=== PATIENT | male | born 1990 | race Caucasian/White ===

== ENCOUNTER 2020-01-13 12:06 | Emergency (ER) | payer OTHER ==
[~2020-01-13] VITALS: Ht 177.8 cm; Wt 59.0 kg
[~2020-01-13 12:06] MED LIST: IBUPROFEN600 MG ORAL; ROBAXIN-750750 MG PO
[2020-01-13] MEDS ORDERED: Tetanus/Diptheria/Pertussis IM ONE (13:00)
[2020-01-13 13:02] VITALS: BP 112/74
--- NOTE | 2020-01-13 13:06 | NUR ---
ED Nurse Note:pt. came with 3rg right finger laceration with kitchen knife, no bleeding at this time, wound was cleaned with NS
[2020-01-13] MEDS ORDERED: TYLENOL EXTRA500 MG ORAL (13:30)
[2020-01-13] MEDS ORDERED: MUPIROCIN22 GM TOPIC (13:30)
--- NOTE | 2020-01-13 13:30 | Emergency Room Report ---
History of Present Illness General Chief Complaint: Laceration Source: Patient Present Illness HPI 29-year-old male with no segment past medical history here complaining of finger laceration that happened 20 minutes prior to arrival. Patient reports that he was making food as he accidentally cut the tip of his finger. Minimal bleeding noted with superficial laceration. Patient has full range of motion. Denies any tingling or numbness. Neurovascularly intact. No motor or sensory deficits noted. Has not taken medication for symptom relief. Is not up-to- date with tetanus shot. Allergies: Coded Allergies: CODEINE (Verified Allergy, Unknown, 11/19/15) COVID-19 Screening Contact w/high risk pt: No Recent Travel to affected area: No Experienced COVID-19 symptoms?: No Patient History Past Medical History: see triage record Past Surgical History: none Pertinent Family History: none Immunizations: other - Tdap given today Reviewed Nursing Documentation: PMH: Agreed; PSxH: Agreed Nursing Documentation-PMH Past Medical History: No Stated History Review of Systems All Other Systems: negative except mentioned in HPI Physical Exam Vital Signs Date Time Temp Pulse Resp B/P (MAP) Pulse Ox O2 Delivery O2 Flow Rate FiO2 01/13/20 12:28 97.7 61 16 112/74 (87) 98 Nasal Cannula Sp02 EP Interpretation: reviewed, normal General Appearance: well appearing, no apparent distress Head: normocephalic, atraumatic ENT: hearing grossly normal, normal voice Neck: full range of motion, supple Respiratory: no respiratory distress, speaking full sentences Cardiovascular #1: no edema Cardiovascular #2: 2+ radial (R), 2+ radial (L) Gastrointestinal: soft Rectal: deferred Genitourinary: no CVA tenderness Musculoskeletal: no calf tenderness Neurologic: alert, normal gait Psychiatric: mood/affect normal Skin: laceration - left middle finger sup lac Lymphatic: no adenopathy Procedures Laceration/Wound Repair Laceration/Wound Repair : Consent: Verbal Wound Location: upper extremity - left middle finger Wound's Depth, Shape: superficial Wound Length (cm): 1 Wound Explored: clean Wound Repaired With: Dermabond Layer Closure?: Yes Sterile Dressing Applied?: Yes Splint Applied?: No Sling Applied?: No Patient Tolerated: Well Complications: None Medical Decision Making PA Attestation All my diagnosis and treatment plans were reviewed ad discussed with my supervising physician Dr. [place] Diagnostic Impression: Primary Impression: Finger laceration ER Course 29-year-old male with no segment past medical history here complaining of finger laceration that happened 20 minutes prior to arrival. Patient reports that he was making food as he accidentally cut the tip of his finger. Minimal bleeding noted with superficial laceration. Patient has full range of motion. Denies any tingling or numbness. Neurovascularly intact. No motor or sensory deficits noted. Has not taken medication for symptom relief. Is not up-to- date with tetanus shot. Ddx considered but are not limited to : Superficial laceration, deep laceration , tendon involvement with laceration, laceration with foreign body Vital signs: are WNL, pt. is afebrile H&PE are most consistent with:finger laceration superficial ORDERS: Tylenol, Bactroban ED INTERVENTIONS: Wound closure, wound clean and dressed, Tdap DISCHARGE: At this time pt. is stable for d/c to home. Will provide printed patient care instructions, and any necessary prescriptions. Care plan and follow up instructions have been discussed with the patient prior to discharge. Take medication as directed, follow primary doctor, if worsening symptoms return to the emergency room Last Vital Signs Date Time Temp Pulse Resp B/P (MAP) Pulse Ox O2 Delivery O2 Flow Rate FiO2 01/13/20 13:02 97.7 61 16 112/74 98 Nasal Cannula Disposition: HOME, SELF-CARE Condition: Stable Scripts Acetaminophen* (TYLENOL EXTRA STRENGTH*) 500 Mg Tablet 500 MG ORAL Q8H PRN for Prn Headache/Temp > 101, #30 TAB 0 Refills Prov: John Gutierrez 01/13/20 Mupirocin* (MUPIROCIN*) 22 Gm Oint...g. 1 APPLIC TOPIC THREE TIMES A DAY, #22 GM Prov: John Gutierrez 01/13/20 Referrals: [facility],REFERRING (PCP) Patient Instructions: Laceration Care, Adult Additional Instructions: Take medication as directed, follow primary doctor, if worsening symptoms return to the emergency room John Gutierrez January 13, 2020 13:30
[2020-01-13 13:50] VITALS: BP 112/74
--- NOTE | 2020-01-13 13:50 | NUR ---
ER DISCHARGE NOTE: Patient is cleared to be discharged per ERMD, pt is aox4, on room air, with stable vital signs. pt was given dc and prescription instructions, pt was able to verbalize understanding, pt is able to ambulate with steady gait. pt took all belongings.
== END 2020-01-13 14:25 | disposition home or self-care (01) ==
LOC: EMR 12:58
DX: S61.213A Laceration without foreign body of left middle finger without damage to nail, initial encounter (principal); Z23 Encounter for immunization; W26.0XXA Contact with knife, initial encounter; Y92.9 Unspecified place or not applicable; Z88.6 Allergy status to analgesic agent
CPT/HCPCS: 12001; 90471; 90715; Z7502; 99283